=== PATIENT | female | born 1985 | race Caucasian/White ===

== ENCOUNTER 2016-11-22 23:39 | Emergency (ER) | payer MEDICAID, OTHER ==
[2016-11-23 00:07] VITALS: BMI 37.8
[2016-11-23 00:17] VITALS: RESP 18; TEMP 98
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
[2016-11-23 01:43] VITALS: BP 105/66; PULSE 97; O2SAT 97
== END 2016-11-23 01:50 | disposition home or self-care (01) ==
LOC: ED 23:39
DX: S00.93XA Contusion of unspecified part of head, initial encounter (principal); V59.19XA Passenger in pick-up truck or van injured in collision with other motor vehicles in nontraffic accident, initial encounter; Y92.89 Other specified places as the place of occurrence of the external cause; Y99.8 Other external cause status

== ENCOUNTER 2016-11-28 20:10 | Emergency (ER) | payer OTHER, MEDICAID ==
[2016-11-28 20:45] VITALS: BMI 38.2
[2016-11-28 20:50] VITALS: RESP 17; O2SAT 100
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
--- NOTE | 2016-11-29 00:02 | CT ---
EXAM: CT Cervical Spine Without Intravenous Contrast. CLINICAL HISTORY: 31 years old, female; Pain; Neck pain TECHNIQUE: Axial computed tomography images of the cervical spine without intravenous contrast. This CT exam was performed using one or more of the following dose reduction techniques: automated exposure control, adjustment of the mA and/or kV according to patient size, and/or use of iterative reconstruction technique. Coronal and sagittal reformatted images were created and reviewed. EXAM DATE/TIME: 11/28/2016 9:41 PM COMPARISON: There are no prior studies for comparison. FINDINGS: Vertebrae: There is reversal of the cervical lordosis. There is no prevertebral soft tissue swelling. There are no fractures. There are mild degenerative changes in the cervical spine greatest at C3/C4.Facet joints align anatomically.Spinous processes align in the expected fashion. There is mild disc space narrowing greatest C3-4 and C4-5. Discs/spinal canal/neural foramina: See above. Soft tissues: See above. Thyroid: Thyroid is unremarkable Lung apices: Lung apices are clear. Other findings: Airway is unremarkable IMPRESSION: Reversal of the cervical lordosis; minimal degenerative change; no acute osseous abnormality
[2016-11-29 00:50] VITALS: BP 121/88; PULSE 79; TEMP 97.6
== END 2016-11-29 00:50 | disposition home or self-care (01) ==
LOC: ED 20:10
DX: M54.2 Cervicalgia (principal)